=== PATIENT | female | born 1945 | race Caucasian/White ===

== ENCOUNTER → 2017-08-08 19:44 | Emergency (ER) | payer MEDICARE, BC ==
[~2017-08-08 19:44] MED LIST: BSS OPTH.SOL* BTL ONE; Erythromycin OPTH OINT* APPLIC OINT LEFT EYE ONE; Fluorescein Sod TOPICAL 0.6* 0.6 MG TEST OPHTHALMIC ONE; Tetracaine 0.5% OPTH.SOL 4 ML* 1 DROP BTL LEFT EYE SCH; Tetracaine 0.5% OPTH.SOL 4 ML* 1 DROP BTL ONE
[2017-08-08 20:13] VITALS: BP 125/73
--- NOTE | 2017-08-08 20:54 | UC ---
Eye Complaint HPI - HPI Summary HPI Summary: 72 y/o female presents to the urgent care c/o left eye irritation s/p working in the garden 2 days ago. Pt reports she is not sure if dust got in to her eye or a chemical she was putting in her plants and mistakenly rubbed her eye. AT firs it was mild itching, but then she developed mild swelling in the corners of lateral side of her left eye w/ redness and mild pain. She irrigated her eye. She thought is was a sty, but she doesn't see anything. Pain is 2/10 w/ touch. Pt denies FORD, fever, visual disturbances, photophobia, SOB, chest pain, abdominal pain,N/V/D - History of Current Complaint Chief Complaint: UCEye Stated Complaint: LEFT EYE COMPLAINT Time Seen by Provider: 08/08/17 20:45 Hx Obtained From: Patient ?: No Onset/Duration: Gradual Onset, Lasting Days - 2 days, Still Present, Worse Since - yesterday Timing: Constant Severity Initially: Mild Pain Intensity: 2 Pain Scale Used: 0-10 Numeric Location of Injury: Conjunctiva - left eye redness, Eye Lid (lower) - left lower eyelid mild swelling Character: Dull Aggravating Factor(s): Blinking Associated Signs And Symptoms: Positive: Drainage (Clear), Swelling. Negative: Photophobia, Fever - Risk Factors Penetrating Injury Risk Factor: Negative Globe Rupture Risk Factors: Negative Acute Glaucoma Risk Factors: Negative Optic Artery Occlusion Risk Factors: Negative - Allergies/Home Medications Allergies/Adverse Reactions: Allergies Allergy/AdvReac Type Severity Reaction Status Date / Time naproxen Allergy Rash Verified 08/08/17 20:15 Penicillins Allergy Rash Verified 08/08/17 20:15 Home Medications: Home Medications ValACYclovir (*) [Valtrex 500 mg (*)] 250 mg PO DAILY 08/08/17 [History Confirmed 08/08/17] PMH/Surg Hx/FS Hx/Imm Hx Previously Healthy: Yes - Pt denies PMHX - Surgical History Surgical History: Yes Surgery Procedure, Year, and Place: varicose veins removed, ganglion cyst. RIGHT BREAST BIOPSY - Family History Family History: Colon [place] - mother - Social History Occupation: Retired Lives: With Family Alcohol Use: Daily Alcohol Amount: wine with dinner Substance Use Type: None Smoking Status (MU): Never Smoked Tobacco - Immunization History Most Recent Influenza Vaccination: fall 2015 Review of Systems Constitutional: Negative Skin: Negative Eyes: Drainage - clear, Eye Redness - left eye redness and pain ENT: Negative Respiratory: Negative Cardiovascular: Negative Gastrointestinal: Negative Genitourinary: Negative Motor: Negative Neurovascular: Negative Musculoskeletal: Negative Neurological: Negative Psychological: Negative Is Patient Immunocompromised?: No All Other Systems Reviewed And Are Negative: Yes Physical Exam - Summary Physical Exam Summary: Vital Signs Reviewed: Yes General: Well appearing, well nourished female in no apparent pain distress Eyes: Positive: left lateral side of the left Conjunctiva Inflamed - Visual acuity: WNL,Visual padilla: full to confrontation.mild lower eyelid soft tissue swelling and tender to palpation . PERRLA, EOMI intact w/out limitation or complaint of pain. eyelashes clear. mild tearing observed. No ciliary flush. No chemosis, No photophobia. Normal fundoscopic exam; no proptosis, exophthalmos , nystagmus. ENT: Positive: Normal ENT inspection, Hearing grossly normal, Pharynx normal, Nasal congestion, Nasal drainage - clear, TMs normal - B/L external ear canal clear , TM's WNL. Negative: Tonsillar swelling, Tonsillar exudate Neck: Positive: Supple, Nontender, No Lymphadenopathy Respiratory: Positive: Chest nontender, Lungs clear, Normal breath sounds, No respiratory distress Cardiovascular: Positive: RRR, No Murmur, Pulses Normal, Brisk Capillary Refill Abdomen Description: Positive: Nontender, No Organomegaly, Soft. Negative: CVA Tenderness (R), CVA Tenderness (L) Bowel Sounds: Positive: Present Musculoskeletal: Positive: Strength Intact, ROM Intact, No Edema Neurological Exam: Normal Psychological Exam: Normal Skin Exam: Normal Triage Information Reviewed: Yes Vital Signs: Initial Vital Signs Temp 97.2 F 08/08/17 20:10 Pulse 70 08/08/17 20:10 Resp 16 08/08/17 20:10 BP 125/73 08/08/17 20:10 Pulse Ox 99 08/08/17 20:10 Eye Complaint Course/Dx - Course Course Of Treatment: 72 y/o female presents to the urgent care c/o left eye irritation s/p working in the garden 2 days ago. Pt reports she is not sure if dust got in to her eye or a chemical she was putting in her plants and mistakenly rubbed her eye. AT firs it was mild itching, but then she developed mild swelling in the corners of lateral side of her left eye w/ redness and mild pain. She irrigated her eye. She thought is was a sty, but she doesn't see anything. Pain is 2/10 w/ touch. Pt denies FORD, fever, visual disturbances, photophobia, SOB, chest pain, abdominal pain,N/V/D. Hx obtained. Pt w/ a discrete left corneal abrasion and mild left eye conjunctivitis on examination. Left eye irrigated w/ saline water. Topical anesthetic was instilled with good anesthesia using 1 gtt of ophth Tetracaine. Fluorescein stain of the L eye was performed w uptake of dye. discrete linear corneal abrasion observed at 8 oclock. No FB, ulcer, or dendritic lesion. Upper lid was everted and no FB or lesions were noted. Anterior chamber is clear w/out cells or flare. Normal saline irrigation wash solutions was performed and the pt tolerated the procedure well, no adverse reaction or complication. After procedure Pt felt better. Pt Rx Erythromycin ophthalmic ointment, first dose givne at the clinic [facility] and advised to f/u at [facility] [place] in 2 days. Pt understood and agreed w/ plan of care. - Differential Dx/Diagnosis Differential Diagnosis/HQI/PQRI: Conjunctivitis, Corneal Abrasion, Foreign Body , Periorbital Cellulitis, Orbital Cellulitis Provider Diagnoses: 1- left corneal abrasion. 2- left bacterial conjunctivitis Discharge - Sign-Out/Discharge Documenting (check all that apply): Discharge/Admit/Transfer - D/C home - Discharge Plan Condition: Stable Disposition: HOME Prescriptions: Erythromycin OPTH OINT* [Erythromycin 0.5% OPTH OINT*] 1 applic LEFT EYE TID #1 ophth.oint Patient Education Materials: Corneal Abrasion (ED), Conjunctivitis (ED) Referrals: Tiffany Mcfarlane MD [Primary Care Provider] - 2 Days Pasquale Bay MD [Medical Doctor] - 2 Days Additional Instructions: 1-Please apply ophthalmic ointment in your left eye as directed. Please apply cold compresses TID prn to decrease swelling. 2-Take Ibuprofen PO q6-8hrs prn after meals to alleviate pain and swelling. 2- If you do not improve or if symptoms worsen please f/u with hydraulic oil tool operator Dr Bay in 2 days for further evaluation and treatment - Billing Disposition and Condition Condition: STABLE Disposition: HOME
== END | disposition home or self-care (01) ==
LOC: UCEAST 19:44
DX: S05.02XA Injury of conjunctiva and corneal abrasion without foreign body, left eye, initial encounter (principal); X58.XXXA Exposure to other specified factors, initial encounter; Y93.H2 Activity, gardening and landscaping; Y92.096 Garden or yard of other non-institutional residence as the place of occurrence of the external cause; H10.32 Unspecified acute conjunctivitis, left eye; Z88.6 Allergy status to analgesic agent; Z88.0 Allergy status to penicillin
CPT/HCPCS: 99212; A9270-GY; G0463